=== PATIENT | male | born 1960 | race Two or more races ===

== ENCOUNTER 2023-06-14 21:43 | Emergency (ER) | payer MEDICAID, OTHER ==
[~2023-06-14] VITALS: Ht 170.2 cm; Wt 81.8 kg
[2023-06-14 22:33] LABS: Basophils # (auto) 0 10 ^3/uL (0-0.2); Basophils % (auto) 0.1 % (0.0-2.0); Eosinophils # (auto) 0 10 ^3/uL (0-0.8); Hematocrit 46.2 % (41.0-53.0); Hemoglobin 15.2 g/dL (13.5-17.5); Lymphocytes # (auto) 0.8 10 ^3/uL (0.4-5.4); Lymphocytes % (auto) 6.6 % (10.0-50.0); Mean Corpuscular Hemoglobin 29.3 pg (28.0-32.0); Mean Corpuscular Hgb Conc. 32.9 g/dL (32.0-36.0); Mean Corpuscular Volume 88.9 fL (80.0-100.0); Monocytes # (auto) 0.5 10 ^3/uL (0-1.3); Monocytes % (auto) 4.7 % (0.0-12.0); Neutrophils # (auto) 10.3 10 ^3/uL (1.6-8.6); Neutrophils % (auto) 88.6 % (37.0-80.0); Nucleated Red Blood Cells % 0.1 %; Red Cell Distribution Width 14.4 % (11.8-14.3); White Blood Cell 11.6 10^3/uL (4.4-10.8)
[2023-06-14 22:52] LABS: Calcium 8.9 mg/dL (8.5-10.1); Potassium 3.7 mmol/L (3.5-5.1)
[2023-06-14 22:56] LABS: BUN/Creatinine Ratio 17.6 (10.0-20.0); Bilirubin, Total 0.4 mg/dL (0.2-1.0)
[2023-06-15] MEDS ORDERED: LORazepam 2MG/ML-1ML VIAL IM ONE (05:45)
[2023-06-15] MEDS ORDERED: ONDANSETRON ODT 4 MG TAB PO ONE (05:45)
[2023-06-15 08:36] VITALS: BP 146/89; PULSE 74; RESP 18; TEMP 97.5; O2SAT 95
== END 2023-06-15 08:37 | disposition home or self-care (01) ==
LOC: EDBD 21:43 → ER 21:47
DX: R42 Dizziness and giddiness (principal)
CPT/HCPCS: 36415; 70450; 71045; 71250; 74176; 80053; 84484; 85025; 93005; 96372; 99285; J2060; Q0162